=== PATIENT | female | born 1990 | race Caucasian/White ===

== ENCOUNTER → 2021-02-04 | Outpatient (CLI) | payer OTHER ==
[~2021-02-04] MED LIST: ALLEGRA ALLERGY60 MG PO; AUGMENTIN 875-1 EACH PO; BACTRIM DS TAB1 EACH PO; FLONASE 0.05% N16 GM; PREDNISONE 50 M50 MG PO; TESSALON PERLE100 MG PO
== END ==
LOC: KOH-I 08:17
DX: M79.672 Pain in left foot (principal)
CPT/HCPCS: 73630

== ENCOUNTER 2021-07-01 17:57 | Emergency (ER) | payer OTHER ==
[2021-07-01 19:25] LABS: HEMOGLOBIN 12.3 gm/dl (12.3-15.3); RED BLOOD COUNT 4.68 M/UL (4.00-5.10)
[2021-07-01 20:06] LABS: BUN/CREATININE RATIO 13 (0-10)
== END 2021-07-01 22:25 | disposition home or self-care (01) ==
LOC: ER1 17:57
PROVIDERS: Physician Assistant
DX: R00.2 Palpitations (principal); F17.290 Nicotine dependence, other tobacco product, uncomplicated
CPT/HCPCS: 71045; 80053; 82550; 82553; 83874; 84439; 84443; 84484; 85025; 93005; 99285

== ENCOUNTER → 2022-01-30 | Outpatient (CLI) | payer OTHER | LOC: LAB 12:19 | DX: Z32.00 Encounter for pregnancy test, result unknown (principal) | CPT/HCPCS: 36415; 84702 ==